=== PATIENT | female | born 1980 | race Caucasian/White ===

== ENCOUNTER → 2016-06-29 | Outpatient (REF) | payer OTHER | LOC: M LAB REF 10:11 | PROVIDERS: ATTEND Physician Assistant Medical | DX: J02.9 Acute pharyngitis, unspecified (principal) ==

== ENCOUNTER → 2016-07-21 | Outpatient (CLI) | payer OTHER ==
--- NOTE | 2016-07-21 16:50 | REP ---
Clinical: Cough. Technique: PA and lateral. Comparison: None. Findings: There is a vague area of opacity/density in the left upper lobe which requires further investigation. Differential diagnosis includes consolidation as well as neoplasm. Mediastinum and cardiac silhouette normal. Remainder of lung howard clear. No effusion. No pneumothorax. Skeletal structures intact. Impression: A vague area of opacity/density in the left upper lobe. Differential diagnosis includes consolidation and neoplasm. Chest CT with contrast recommended. Signed by David Moscoso MD 07/21/2016 04:42 P
== END ==
LOC: M ADAMS 16:21
PROVIDERS: ATTEND Physician Assistant
DX: R05 Cough (principal); J98.4 Other disorders of lung

== ENCOUNTER → 2016-08-08 | Outpatient (CLI) | payer OTHER ==
--- NOTE | 2016-08-08 16:27 | REP ---
PET/CT: History: Six 0.6 x 2.0 x 5.8 centimeter asymmetric density in the medial basal segment of the left lower lobe. Question malignancy. Cough. Diagnosing lung carcinoma. Comparisons: Comparison chest CT study is from 08/01/2016. TECHNIQUE: 52 minutes following the intravenous injection of a 10.1 mCi dose of F-18 FDG, three-dimensional PET scintigraphy is acquired from the skull base to the proximal thighs. Triplanar noncontrast CT scanning is acquired through the same anatomic range for attenuation correction, and image registration with scan parameters optimized to minimize radiation exposure to the patient. PET scintigraphy and CT datasets were fused and displayed on a workstation with multiplanar and projection display capability. PET/CT Findings: The there is discernible non hypermetabolic FDG accumulation in the patchy opacification pattern in the left lower lobe on today's PET scintigraphy. There is a band of linear atelectatic opacity in the left base which is slightly different appearance than on the 08/01/2016 CT study. The scattered reticular nodular and tree in bud densities seen elsewhere in the left lower lobe are not apparent on today's accompanying CT suggesting some clearing. No mass-like properties are seen. The findings are most compatible with inflammatory disease. Maximum standard uptake value is 2.0. No other hypermetabolic uptake is seen within the thorax. The head and neck soft tissues are unremarkable. No abnormal hypermetabolic uptake is seen within the abdomen pelvis or proximal thighs. Impression: Non hypermetabolic FDG accumulation in the atelectatic or infiltrative density in the left lower lobe. This favors inflammatory changes. Follow-up chest CT study suggested in 3-4 months. Otherwise negative PET CT. Signed by Terence Couch MD 08/08/2016 05:06 P
== END ==
LOC: M RAD 07:52
PROVIDERS: ATTEND Physician Assistant Medical
DX: R91.8 Other nonspecific abnormal finding of lung field (principal)
CPT/HCPCS: 78815; A9552

== ENCOUNTER → 2016-08-29 | Outpatient (REF) | payer OTHER | LOC: M LABDRWAD 10:15 | PROVIDERS: ATTEND Internal Medicine Pulmonary Disease | DX: J47.0 Bronchiectasis with acute lower respiratory infection (principal) ==

== ENCOUNTER → 2016-08-29 | Outpatient (REF) | payer OTHER ==
[2016-08-29 20:10] LABS: BASO % 0.6 % (0.0-1.0); EOS # 0.1 K/mm3 (0.0-0.50); EOS % 1.3 % (0.0-3.0); LYMPH # 1.4 K/mm3 (1.5-4.5); LYMPH % 31.3 % (24.0-44.0); MEAN CORPUSCULAR HEMOGLOBIN 27.9 pg (27.0-33.0); MEAN CORPUSCULAR HGB CONC 32.5 g/dl (32.0-36.5); MEAN CORPUSCULAR VOLUME 85.8 fl (80.0-96.0); MONO # 0.3 K/mm3 (0.0-0.8); MONO % 6.6 % (0.0-5.0); NEUTROPHILS # 2.5 K/mm3 (1.8-7.7); NEUTROPHILS % 57.9 % (36.0-66.0); RED CELL DISTRIBUTION WIDTH 13.1 % (11.5-14.5); WHITE BLOOD COUNT 4.3 K/mm3 (4.0-10.0)
[2016-08-29 20:23] LABS: ALBUMIN/GLOBULIN RATIO 1.21 (1.00-1.93); ALKALINE PHOSPHATASE 39 U/L (45-117); ALT/SGPT 16 U/L (12-78); ANION GAP 2 MEQ/L (8-16); AST/SGOT 11 U/L (15-37); BILIRUBIN,TOTAL 0.9 MG/DL (0.2-1.0); BLOOD UREA NITROGEN 13 MG/DL (7-18); CARBON DIOXIDE LEVEL 30 MEQ/L (21-32); CHLORIDE LEVEL 107 MEQ/L (98-107); CREATININE FOR GFR 0.71 MG/DL (0.55-1.02); FOLATE 9.5 NG/ML; GLOMERULAR FILTRATION RATE > 60.0 (>60); GLUCOSE, FASTING 83 MG/DL (70-105); POTASSIUM SERUM 4.1 MEQ/L (3.5-5.1); SODIUM LEVEL 139 MEQ/L (136-145); TOTAL PROTEIN 7.3 GM/DL (6.4-8.2); VITAMIN B12 LEVEL 478 PG/ML
[2016-08-30 12:03] LABS: ALBUMIN 4.43 GM/DL (3.29-5.55); ALBUMIN % 60.7 % (55.8-66.1); GAMMA GLOBULIN % 15.6 % (11.1-18.8)
[2016-09-01 00:06] LABS: Lyme Disease IgG/IgM Antibodie <0.91 ISR (0.00-0.90); Lyme Disease IgM Ab Quantitati <0.80 index (0.00-0.79)
== END ==
LOC: M LAB REF 09:12
PROVIDERS: ATTEND Physician Assistant Medical
DX: M13.80 Other specified arthritis, unspecified site (principal); R53.83 Other fatigue

== ENCOUNTER → 2017-04-04 | Outpatient (REF) | payer OTHER | LOC: M LAB REF 21:03 | PROVIDERS: ATTEND Physician Assistant | DX: J02.9 Acute pharyngitis, unspecified (principal) ==

== ENCOUNTER → 2017-06-03 | Outpatient (CLI) | payer OTHER ==
[2017-06-03 20:36] LABS: HEMOGLOBIN 9.3 g/dl (12.0-16.0); MEAN CORPUSCULAR HEMOGLOBIN 27.3 pg (27.0-33.0); MEAN CORPUSCULAR HGB CONC 32.1 g/dl (32.0-36.5); PLATELET COUNT, AUTOMATED 185 10^3/uL (150-450); RED BLOOD COUNT 3.41 10^6/uL (4.00-5.40); RED CELL DISTRIBUTION WIDTH 13.1 % (11.5-14.5); WHITE BLOOD COUNT 6.4 10^3/uL (4.0-10.0)
[2017-06-03 20:45] LABS: GLUCOSE CHALLENGE TEST 1 HOUR 122 MG/DL (LESS THAN 140)
== END ==
LOC: M WUC 17:15
DX: Z36.89 Encounter for other specified antenatal screening (principal); Z3A.00 Weeks of gestation of pregnancy not specified
CPT/HCPCS: 82950

== ENCOUNTER → 2017-08-02 | Outpatient (REF) | payer OTHER | LOC: M LAB REF 13:06 | DX: Z34.83 Encounter for supervision of other normal pregnancy, third trimester (principal) | CPT/HCPCS: 87081 ==

== ENCOUNTER 2017-08-31 10:54 | Inpatient (IN) | payer OTHER ==
[2017-08-31] MEDS: LR 1,000 ML IV (12:35)
[2017-08-31 12:48] LABS: HEMATOCRIT 33.5 % (36.0-47.0); HEMOGLOBIN 10.7 g/dl (12.0-15.5); MEAN CORPUSCULAR HEMOGLOBIN 26.1 pg (27.0-33.0); MEAN CORPUSCULAR HGB CONC 31.9 g/dl (32.0-36.5); MEAN CORPUSCULAR VOLUME 81.7 fl (80.0-96.0); PLATELET COUNT, AUTOMATED 155 10^3/uL (150-450); RED CELL DISTRIBUTION WIDTH 14.4 % (11.5-14.5); WHITE BLOOD COUNT 8.2 10^3/uL (4.0-10.0)
[2017-08-31] MEDS: LACTATED RINGER'S 1000 ML IV ×2 (12:49→17:51)
[2017-08-31] MEDS ORDERED: OXYTOCIN 30 UNITS IN 0.9% NaCl 500ML IV BAG (J2590) As Ordered (16:33)
[2017-08-31] MEDS ORDERED: FENTANYL 2MCG/ML ROPIVACAINE 0.2% IN 0.9% NACL 200ML IVBAG As Ordered (16:34)
[2017-08-31] MEDS ORDERED: ePHEDrine SULFATE 25 MG/5 ML(5MG/ML) SYRINGE As Ordered (17:47)
[2017-08-31] MEDS: FENTANYL/ROPIVACAINE/NACL BAG 200 ML EPIDURAL (17:51)
[2017-08-31] MEDS: ePHEDrine SULFATE 25 MG/5 ML(5MG/ML) SYRINGE IV (17:51)
[2017-08-31] MEDS ORDERED: EPIDURAL/PCA KEYS XX (18:00)
[2017-08-31] MEDS ORDERED: NALOXONE INJ 0.4 MG/1 ML VIAL (J2310) IV (18:00)
[2017-08-31] MEDS ORDERED: REFRIGERATOR IV KEYS XX (18:00)
[2017-08-31] MEDS ORDERED: diphenhydrAMINE INJ 50MG/ML VIAL (J1200) IV (18:00)
[2017-08-31] MEDS ORDERED: ONDANSETRON 4MG/2ML VIAL (J2405) IV (18:00)
[2017-08-31] MEDS ORDERED: EPIDURAL COMMENT XX (18:00)
[2017-08-31] MEDS: OXYTOCIN DRIP 30 UNITS in APPROPRIATE DILUENT 1 EA IV (20:20)
[2017-08-31] MEDS ORDERED: MEASLES,MUMPS,RUBELLA VACCINE INJ (MMR-II) (90707) SC (20:30)
[2017-08-31] MEDS ORDERED: ANUSOL HC CREAM 30GM TOP (20:30)
[2017-08-31] MEDS ORDERED: RHOGAM 300 MCG (1500 IU) INJ (J2790) IM (20:30)
[2017-08-31] MEDS ORDERED: MOM 30ML SUSPENSION UDC PO (20:30)
[2017-08-31] MEDS ORDERED: DIBUCAINE 1% OINTMENT 30GM TOP (20:30)
[2017-08-31] MEDS ORDERED: DOCUSATE SODIUM 100 MG CAP PO (20:30)
[2017-08-31] MEDS ORDERED: METHYLERGONOVINE MALEATE 0.2 MG TAB PO (20:30)
[2017-09-01] MEDS: IBUPROFEN 800 MG TAB PO ×2 (05:59→15:45)
[2017-09-01] MEDS: ACETAMINOPHEN 500 MG TAB PO ×2 (13:11→20:06)
== END 2017-09-02 09:40 | disposition home or self-care (01) | DRG 775 ==
LOC: M LDO 10:54 → M LDI 12:07 → M OBS 22:02
PROVIDERS: Obstetrics & Gynecology
PROC: 10E0XZZ Delivery of Products of Conception, External Approach (ICD-10-PCS; principal; 2017-08-31)
DX: O48.0 Post-term pregnancy (principal); Z3A.40 40 weeks gestation of pregnancy; Z37.0 Single live birth

== ENCOUNTER 2017-10-09 04:54 | Emergency (ER) | payer OTHER ==
[2017-10-09 06:38] LABS: HEMATOCRIT 32.1 % (36.0-47.0); HEMOGLOBIN 10.2 g/dl (12.0-15.5); MEAN CORPUSCULAR HEMOGLOBIN 25.2 pg (27.0-33.0); MEAN CORPUSCULAR HGB CONC 31.8 g/dl (32.0-36.5); MEAN CORPUSCULAR VOLUME 79.3 fl (80.0-96.0); PLATELET COUNT, AUTOMATED 243 10^3/uL (150-450); RED BLOOD COUNT 4.05 10^6/uL (4.00-5.40); RED CELL DISTRIBUTION WIDTH 14.7 % (11.5-14.5); WHITE BLOOD COUNT 4.5 10^3/uL (4.0-10.0)
[2017-10-09 06:50] LABS: ADD MANUAL DIFFER YES; DIFF SLIDE NUMBER 98; POSITIVE MORPH POS FLAG
[2017-10-09 07:07] LABS: C REACTIVE PROTEIN QUANTITATIV 8.42 MG/DL (0.00-0.30)
[2017-10-09 07:11] LABS: LACTIC ACID SEPSIS PROTOCOL 0.8 MMOL/L (0.4-2.0)
[2017-10-09 07:17] LABS: EOSINOPHILS 2 % (0-5); LYMPHOCYTES 28 % (16-52); MONOCYTES 4 % (0-8); NEUTROPHILS 66 % (35-75)
[2017-10-09 07:18] LABS: PLATELET ESTIMATE NORMAL (NORMAL)
[2017-10-09] MEDS: CLINDAMYCIN 900 MG in APPROPRIATE DILUENT 1 EA IV (07:33)
== END 2017-10-09 08:55 | disposition home or self-care (01) ==
LOC: M ED 04:54
DX: N61.0 Mastitis without abscess (principal); Z79.899 Other long term (current) drug therapy; Z88.0 Allergy status to penicillin; Z91.89 Other specified personal risk factors, not elsewhere classified; Z91.013 Allergy to seafood
CPT/HCPCS: 76642

== ENCOUNTER → 2017-12-11 | Outpatient (CLI) | payer OTHER | LOC: M ADAMS 13:34 | DX: M25.562 Pain in left knee (principal) | CPT/HCPCS: 73564 ==

== ENCOUNTER → 2018-01-16 | Outpatient (REF) | payer OTHER ==
[2018-01-16 17:39] LABS: BASO % 0.4 % (0.0-1.0); EOS # 0.1 10^3/uL (0.0-0.50); HEMATOCRIT 36.2 % (36.0-47.0); HEMOGLOBIN 11.3 g/dl (12.0-15.5); IMMATURE GRANULOCYTE % 0.2 % (0-3.0); LYMPH # 1.7 10^3/uL (1.5-4.5); MEAN CORPUSCULAR HEMOGLOBIN 26.6 pg (27.0-33.0); MEAN CORPUSCULAR HGB CONC 31.2 g/dl (32.0-36.5); MEAN CORPUSCULAR VOLUME 85.2 fl (80.0-96.0); MONO # 0.5 10^3/uL (0.0-0.8); MONO % 10.1 % (0.0-5.0); NEUTROPHILS # 2.2 10^3/uL (1.8-7.7); NEUTROPHILS % 49.3 % (36.0-66.0); PLATELET COUNT, AUTOMATED 261 10^3/uL (150-450); RED BLOOD COUNT 4.25 10^6/uL (4.00-5.40); WHITE BLOOD COUNT 4.5 10^3/uL (4.0-10.0)
[2018-01-16 18:44] LABS: IRON (FE) 61 UG/DL (50-170); PERCENT SATURATION 19.6 % (13.2-45.0); TOTAL IRON BINDING CAPACITY 312 UG/DL (250-450)
== END ==
LOC: M SFHCADAM 15:59
DX: Z86.2 Personal history of diseases of the blood and blood-forming organs and certain disorders involving the immune mechanism (principal)

== ENCOUNTER → 2018-01-21 | Outpatient (REF) | payer OTHER | LOC: M SFHCADAM 11:54 | DX: K62.5 Hemorrhage of anus and rectum (principal) ==

== ENCOUNTER → 2018-03-04 | Outpatient (REF) | payer OTHER | LOC: M LAB REF 16:06 | DX: L81.4 Other melanin hyperpigmentation (principal) ==

== ENCOUNTER → 2018-04-18 | Outpatient (REF) | payer OTHER ==
[~2018-04-18] MED LIST: CEPH500C; CLEO300C2 PO; COLA100C5 PO; MILK120011 PO; MOTR200T44 PO; PRENTAB9 PO; TUMS500C PO; TYLE325C PO
[2018-04-18 19:23] LABS: BASO % 0.5 % (0.0-1.0); EOS # 0.1 10^3/uL (0.0-0.50); EOS % 1.4 % (0.0-3.0); HEMATOCRIT 39.6 % (36.0-47.0); HEMOGLOBIN 12.4 g/dl (12.0-15.5); LYMPH # 1.8 10^3/uL (1.5-4.5); LYMPH % 23.3 % (24.0-44.0); MEAN CORPUSCULAR HEMOGLOBIN 26.8 pg (27.0-33.0); MEAN CORPUSCULAR HGB CONC 31.3 g/dl (32.0-36.5); MEAN CORPUSCULAR VOLUME 85.7 fl (80.0-96.0); MONO # 0.4 10^3/uL (0.0-0.8); MONO % 5.1 % (0.0-5.0); NEUTROPHILS # 5.5 10^3/uL (1.8-7.7); NEUTROPHILS % 69.3 % (36.0-66.0); PLATELET COUNT, AUTOMATED 369 10^3/uL (150-450); RED BLOOD COUNT 4.62 10^6/uL (4.00-5.40); WHITE BLOOD COUNT 7.9 10^3/uL (4.0-10.0)
== END ==
LOC: M SFHCADAM 14:31
PROVIDERS: ATTEND Family Medicine
DX: D50.9 Iron deficiency anemia, unspecified (principal); E55.9 Vitamin D deficiency, unspecified

== ENCOUNTER → 2018-11-15 | Outpatient (REF) | payer OTHER ==
[~2018-11-15] MED LIST changes: +IBUP-1022 PO; +IRON27TA2 PO; +PROBCAP14 PO; +REGL10TA6 PO; +VITAD1000T PO
== END ==
LOC: M LAB REF 10:48
PROVIDERS: ATTEND Physician Assistant
DX: N39.0 Urinary tract infection, site not specified (principal)

== ENCOUNTER → 2018-11-17 | Outpatient (REF) | payer OTHER ==
[2018-11-17 15:35] LABS: APPEARANCE, URINE CLEAR (CLEAR); BACTERIA, URINE AUTO NEGATIVE (NEGATIVE); BILIRUBIN, URINE AUTO NEGATIVE (NEGATIVE); BLOOD, URINE BLOOD 1+ (NEGATIVE); COLOR, URINE YELLOW (YELLOW); GLUCOSE, URINE (UA) AUTO NEGATIVE (NEGATIVE); KETONE, URINE AUTO NEGATIVE (NEGATIVE); LEUKOCYTE ESTERASE, URINE AUTO NEGATIVE (NEGATIVE); NITRITE, URINE AUTO NEGATIVE (NEGATIVE); PROTEIN, URINE AUTO NEGATIVE (NEGATIVE); RBC, URINE AUTO 3 /HPF (0-3); SPECIFIC GRAVITY URINE AUTO 1.006 (1.002-1.035); SQUAMOUS EPITHELIAL CELL UR AU 0 /HPF (0-6); UROBILINOGEN, URINE AUTO 0.2 mg/dL (0.0-2.0); WBC, URINE AUTO 0 /HPF (0-3)
[2018-11-17 15:44] LABS: BASO % 0.8 % (0.0-1.0); EOS % 0.4 % (0.0-3.0); HEMOGLOBIN 13.1 g/dl (12.0-15.5); LYMPH # 0.3 10^3/uL (1.5-4.5); LYMPH % 13.1 % (24.0-44.0); MEAN CORPUSCULAR HEMOGLOBIN 27.1 pg (27.0-33.0); MEAN CORPUSCULAR VOLUME 84.9 fl (80.0-96.0); MONO # 0.4 10^3/uL (0.0-0.8); MONO % 17.1 % (0.0-5.0); NEUTROPHILS # 1.7 10^3/uL (1.8-7.7); NEUTROPHILS % 68.2 % (36.0-66.0); PLATELET COUNT, AUTOMATED 145 10^3/uL (150-450); RED BLOOD COUNT 4.83 10^6/uL (4.00-5.40); WHITE BLOOD COUNT 2.5 10^3/uL (4.0-10.0)
[2018-11-17 16:11] LABS: BLOOD UREA NITROGEN 8 MG/DL (7-18); CARBON DIOXIDE LEVEL 27 MEQ/L (21-32); CHLORIDE LEVEL 98 MEQ/L (98-107); GLOMERULAR FILTRATION RATE > 60.0 (>60); GLUCOSE, FASTING 82 MG/DL (70-100); POTASSIUM SERUM 3.9 MEQ/L (3.5-5.1); SODIUM LEVEL 133 MEQ/L (136-145)
== END ==
LOC: M SFHCPLAZ 14:23
PROVIDERS: ATTEND Family Medicine
DX: N30.00 Acute cystitis without hematuria (principal)

== ENCOUNTER 2018-11-21 12:50 | Emergency (ER) | payer OTHER ==
[~2018-11-21] VITALS: Ht 167.6 cm; Wt 60.5 kg
[~2018-11-21 12:50] MED LIST changes: -IBUP-1022 PO; -IRON27TA2 PO; -PROBCAP14 PO; -REGL10TA6 PO; -VITAD1000T PO
[2018-11-21] MEDS ORDERED: IRON27TA2 PO (13:27)
[2018-11-21] MEDS ORDERED: CHOL100029 PO (13:27)
[2018-11-21] MEDS ORDERED: PROBCAP14 PO (13:28)
[2018-11-21 13:36] LABS: BASO % 0.6 % (0.0-1.0); EOS % 0.6 % (0.0-3.0); HEMATOCRIT 36.9 % (36.0-47.0); HEMOGLOBIN 12.1 g/dl (12.0-15.5); LYMPH # 0.8 10^3/uL (1.5-4.5); MEAN CORPUSCULAR HEMOGLOBIN 27.9 pg (27.0-33.0); MEAN CORPUSCULAR HGB CONC 32.8 g/dl (32.0-36.5); MEAN CORPUSCULAR VOLUME 85.2 fl (80.0-96.0); MONO # 0.3 10^3/uL (0.0-0.8); MONO % 8.7 % (0.0-5.0); NEUTROPHILS # 2.3 10^3/uL (1.8-7.7); NEUTROPHILS % 67.1 % (36.0-66.0); PLATELET COUNT, AUTOMATED 165 10^3/uL (150-450); RED BLOOD COUNT 4.33 10^6/uL (4.00-5.40); WHITE BLOOD COUNT 3.4 10^3/uL (4.0-10.0)
[2018-11-21] MEDS ORDERED: IBUPROFEN 800 MG TAB PO ONE (13:45)
[2018-11-21 14:00] LABS: ALBUMIN 3.8 GM/DL (3.2-5.2); ALT/SGPT 18 U/L (12-78); BILIRUBIN,TOTAL 0.6 MG/DL (0.2-1.0); BLOOD UREA NITROGEN 6 MG/DL (7-18); CALCIUM LEVEL 8.7 MG/DL (8.5-10.1); CARBON DIOXIDE LEVEL 29 MEQ/L (21-32); CHLORIDE LEVEL 103 MEQ/L (98-107); CREATININE FOR GFR 0.69 MG/DL (0.55-1.30); GLOMERULAR FILTRATION RATE > 60.0 (>60); GLUCOSE, FASTING 111 MG/DL (70-100); POTASSIUM SERUM 3.8 MEQ/L (3.5-5.1); SODIUM LEVEL 140 MEQ/L (136-145); TOTAL PROTEIN 7.7 GM/DL (6.4-8.2)
[2018-11-21 14:08] LABS: C REACTIVE PROTEIN QUANTITATIV 4.13 MG/DL (0.00-0.30)
[2018-11-21 14:37] LABS: MAGNESIUM LEVEL 2.5 MG/DL (1.8-2.4)
--- NOTE | 2018-11-21 14:50 | REP ---
Clinical: Headache and fever . Comparison: None . Findings: The ventricles, sulci, and cisterns are normal in position and appearance. Garay-white differentiation is maintained. No acute intracranial hemorrhage, mass/mass effect, pathology or trauma/injury. No evidence for acute infarction. No extra-axial fluid collection. Calvarium is intact. Paranasal sinuses and mastoid air cells are clear. Impression: Normal noncontrast head CT. No evidence for acute intracranial pathology or trauma/injury. Electronically Signed by David Moscoso MD 11/21/2018 02:42 P
--- NOTE | 2018-11-21 14:51 | REP ---
Clinical: Headache and fever . Technique: Axial noncontrast images from the skull base to the thoracic inlet with coronal and sagittal re-formations Findings: Straightening of normal lordosis noted. Normal alignment is maintained. Cervical vertebral bodies including transverse processes and spinous processes are intact and there is no evidence for acute fracture / compression injury or subluxation. Spinal canal is patent. Posterior elements are intact. Paravertebral soft tissues are normal. Impression: Essentially normal age appropriate noncontrast cervical spine CT. No evidence for acute pathology or trauma/injury. Electronically Signed by David Moscoso MD 11/21/2018 02:43 P
[2018-11-21] MEDS ORDERED: ACETAMINOPHEN 325 MG TAB PO ONE (16:15)
[2018-11-21] MEDS ORDERED: ONDANSETRON 4MG/2ML VIAL (J2405) IV ONE (16:15)
[2018-11-21] MEDS ORDERED: NS 1,000 ML IV ONE ×2 (16:15→20:00)
[2018-11-21 16:22] LABS: MONO SCRN NEGATIVE (NEGATIVE)
[2018-11-21 18:09] LABS: CPK CREATINE PHOSPHOKINASE 71 U/L (26-192)
--- NOTE | 2018-11-21 19:32 | REP ---
Clinical: Fever . Comparison: 07/21/2016 . Technique: PA and lateral. Findings: The mediastinum and cardiac silhouette are normal. The lung howard are clear and without acute consolidation, effusion, or pneumothorax. The skeletal structures are intact and normal. Impression: 1. No acute cardiopulmonary process. Electronically Signed by David Moscoso MD 11/21/2018 07:23 P
[2018-11-21] MEDS ORDERED: diazePAM 10 MG/2 ML INJ (J3360) IV ONE (20:00)
[2018-11-21] MEDS ORDERED: METOCLOPRAMIDE INJ 10MG/2ML VIAL (J2765) IV ONE (20:00)
[2018-11-21] MEDS ORDERED: diphenhydrAMINE INJ 50MG/ML VIAL (J1200) IV ONE (20:15)
[2018-11-21 21:33] VITALS: BP 103/57
[2018-11-21] MEDS ORDERED: REGL10TA6 PO (21:46)
[2018-11-21] MEDS ORDERED: IBUP-1022 PO (21:46)
[2018-11-25 00:07] LABS: Lyme Disease IgG/IgM Antibodie <0.91 ISR (0.00-0.90); Lyme Disease IgM Ab Quantitati <0.80 index (0.00-0.79)
== END 2018-11-21 21:55 | disposition home or self-care (01) ==
LOC: M ED 12:50
DX: R51 Headache (principal); R11.0 Nausea; R50.9 Fever, unspecified; R21 Rash and other nonspecific skin eruption; M79.10 Myalgia, unspecified site; Z86.79 Personal history of other diseases of the circulatory system; Z82.3 Family history of stroke; Z88.1 Allergy status to other antibiotic agents; Z91.013 Allergy to seafood; Z79.899 Other long term (current) drug therapy
CPT/HCPCS: 70450; 71046; 72125; 80053; 81001; 82550; 83605; 83735; 84702; 85025; 86140; 86308; 86617; 87040; 87486; 87581; 87633; 87798; 87880; 96374; 96375; 99284; J1200; J2405; J2765

== ENCOUNTER → 2019-02-04 | Outpatient (REF) | payer OTHER ==
[~2019-02-04] MED LIST changes: +CHOL100029 PO; +IBUP-1022 PO; +IRON27TA2 PO; +PROBCAP14 PO; +REGL10TA6 PO
[2019-02-06 19:25] LABS: HPV HYBRID CAPTURE II Negative (Negative)
== END ==
LOC: M LAB REF 17:08
PROVIDERS: ATTEND Advanced Practice Midwife
DX: Z12.4 Encounter for screening for malignant neoplasm of cervix (principal)
CPT/HCPCS: 87624; G0123

== ENCOUNTER → 2019-02-16 | Outpatient (CLI) | payer OTHER ==
--- NOTE | 2019-02-16 18:51 | REP ---
Clinical: Lower abdominal pain and tenderness . Technique: Transabdominal pelvic ultrasound followed by transvaginal examination for better evaluation of the endometrium and adnexa with color Doppler evaluation of the ovaries. Findings: Bladder is unremarkable and measures 9.9 x 8.5 x 7.2 cm . Normal anteverted uterus measures 8.9 x 3.7 x 5.6 cm . The endometrial complex measures 7.4 mm thickness. No discrete uterine or endometrial abnormalities are appreciated. Bilateral ovaries are normal in appearance and vascularity without evidence for torsion. Right ovary measures 3.3 x 2.0 x 1.6 cm (RI 0.49) with 1.5 cm dominant follicle/cyst. Left ovary measures 2.9 x 1.4 x 1.2 cm (RI 0.71). No pelvic fluid or adnexal mass lesion . Impression: 1. Essentially normal pelvic ultrasound. Electronically Signed by David Moscoso MD 02/16/2019 06:43 P
== END ==
LOC: M RAD 16:34
PROVIDERS: ATTEND Advanced Practice Midwife
DX: R10.2 Pelvic and perineal pain (principal)

== ENCOUNTER → 2019-06-08 | Outpatient (CLI) | payer OTHER ==
[2019-06-08 18:02] LABS: BASO % 0.3 % (0.0-1.0); EOS # 0.1 10^3/uL (0.0-0.5); EOS % 0.8 % (0.0-3.0); HEMOGLOBIN 11.5 g/dl (12.0-15.5); LYMPH # 1.5 10^3/uL (1.5-5.0); LYMPH % 23.1 % (24.0-44.0); MEAN CORPUSCULAR HEMOGLOBIN 27.9 pg (27.0-33.0); MEAN CORPUSCULAR HGB CONC 31.9 g/dl (32.0-36.5); MEAN CORPUSCULAR VOLUME 87.4 fl (80.0-96.0); MONO # 0.5 10^3/uL (0.0-0.8); MONO % 7.1 % (0.0-5.0); NEUTROPHILS # 4.4 10^3/uL (1.5-8.5); NEUTROPHILS % 68.4 % (36.0-66.0); PLATELET COUNT, AUTOMATED 232 10^3/uL (150-450); RED BLOOD COUNT 4.12 10^6/uL (4.00-5.40); WHITE BLOOD COUNT 6.5 10^3/uL (4.0-10.0)
[2019-06-08 19:48] LABS: CHLAMYDIA DNA AMPLIFICATION NEGATIVE (NEGATIVE); GC DNA AMPLIFICATION NEGATIVE (NEGATIVE)
[2019-06-09 11:27] LABS: HIV 1&2 SCREEN CENTAUR NEGATIVE (NEGATIVE); RUBELLA IgG QUALITATIVE IMMUNE (IMMUNE)
[2019-06-10 09:59] LABS: HEPATITIS C VIRUS ABY INDEX < 0.0 INDEX (<0.8)
== END ==
LOC: M PLALAB 15:16
PROVIDERS: ATTEND Advanced Practice Midwife
DX: Z34.91 Encounter for supervision of normal pregnancy, unspecified, first trimester (principal)

== ENCOUNTER → 2019-08-17 | Outpatient (CLI) | payer OTHER ==
--- NOTE | 2019-08-17 16:45 | REP ---
REASON FOR EXAM: anatomy. There are no priors for comparison. Multiple ultrasonographic images of the gravid uterus show a single living intrauterine gestation in the cephalic presentation. Doppler interrogation of the heart shows a heart rate of 149 beats per minute. The placenta is posterior and not low lying. The subjective amniotic fluid volume is within normal limits. The cervix measures 4 cm in length and is closed. Evaluation of the maternal adnexal spaces showed no abnormalities. anatomical structures seen as unremarkable are as follows: Thalami, cavum septum pellucidum, cerebellum, cisterna magna, spine, kidneys, urinary bladder, three-vessel umbilical cord, cord insertion, right and left ventricular outflow tracts, stomach, upper lip. Structures which need further followup are as follows: Four-chamber heart and choroid plexus. Four-chamber heart image showed one intracardiac echogenic focus in the left ventricle and two intracardiac echogenic foci in the right ventricle. In addition, small amount of fluid was seen surrounding the heart consistent with a pericardial effusion. Four chambers could not be confirmed by today's exam. BPD 3.9 cm = 18 weeks 0 days HC 15.0 cm = 18 weeks 0 days AC 13.2 cm = 18 weeks 5 days FL 2.6 cm = 18 weeks 0 days The estimated weight is 233 grams, which is at the 43rd percentile for an 18 week 3 day gestational age. Single living intrauterine gestation as described above with an estimated gestational age 18 weeks 3 days via composite criteria and an estimated date of delivery of 01/15/2020 based on today's exam. A followup examination is recommended for re-evaluation of those findings described above. In addition, multiple cysts were seen in right and left choroid plexus, some measuring over 5 mm. This too needs further followup. A phone call was placed to ELINA Romo, to discuss today's findings.
== END ==
LOC: M WHC 08:05
PROVIDERS: ATTEND Advanced Practice Midwife
DX: Z34.92 Encounter for supervision of normal pregnancy, unspecified, second trimester (principal)

== ENCOUNTER → 2019-08-17 | Outpatient (CLI) | payer OTHER | LOC: M PLALAB 15:13 | PROVIDERS: ATTEND Advanced Practice Midwife | DX: Z13.79 Encounter for other screening for genetic and chromosomal anomalies (principal) ==

== ENCOUNTER → 2019-10-02 | Outpatient (REF) | payer OTHER ==
[2019-10-02 18:03] LABS: HEMATOCRIT 31.7 % (36.0-47.0); HEMOGLOBIN 10.4 g/dl (12.0-15.5); MEAN CORPUSCULAR HEMOGLOBIN 28.9 pg (27.0-33.0); MEAN CORPUSCULAR HGB CONC 32.8 g/dl (32.0-36.5); MEAN CORPUSCULAR VOLUME 88.1 fl (80.0-96.0); PLATELET COUNT, AUTOMATED 192 10^3/uL (150-450); WHITE BLOOD COUNT 5.6 10^3/uL (4.0-10.0)
== END ==
LOC: M PLALAB 14:52 → M SFHCADAM 14:52
PROVIDERS: ATTEND Advanced Practice Midwife
DX: O09.522 Supervision of elderly multigravida, second trimester (principal)

== ENCOUNTER → 2019-11-12 | Outpatient (CLI) | payer OTHER ==
--- NOTE | 2019-11-12 11:26 | REP ---
Clinical: Growth evaluation. Trisomy 21 Comparison: 08/17/2019 . Findings: Examination demonstrates a single live intrauterine in breech presentation. motion is identified by technologist. Placenta is noted posterior and grade I without evidence for placenta previa or abruption. Amniotic fluid volume is normal. Cervix measures 3.9 cm in length and appears closed. No evidence for nuchal cord. Gestational age by LMP 30 weeks 6 days with CASI 01/15/2020 . Gestational age by current measurements 30 weeks 1 day with CASI 01/20/2020 . FHR equals 136 beats per minute. BPD 7.5 cm 30 weeks 1 day HC 28.9 cm 31 weeks 6 days AC 28.9 cm 32 weeks 6 days FL 5.4 cm 28 weeks 5 days HL 4.7 cm of 27 weeks 6 days HC/AC ratio 1.00 Estimated weight 1742 grams ( 53rd percentile). Amniotic fluid index: 15.2 cm (8.8 - 23.7). Anatomical evaluation is limited and again demonstrates a small pericardial fluid collection as well as increased echogenicity to the abdominal contents. Impression: 1. Single live intrauterine in breech presentation demonstrating appropriate interval growth. 2. Small pericardial effusion again noted along with mildly prominent increased echogenicity to the abdominal contents. Electronically Signed by David Moscoso MD 11/12/2019 11:17 A
== END ==
LOC: M WHC 07:24
PROVIDERS: ATTEND Advanced Practice Midwife
DX: Q90.9 Down syndrome, unspecified (principal)

== ENCOUNTER → 2019-12-22 | Outpatient (REF) | payer OTHER | LOC: M WHC 14:30 | PROVIDERS: ATTEND Advanced Practice Midwife | DX: Z34.83 Encounter for supervision of other normal pregnancy, third trimester (principal) ==

== ENCOUNTER → 2019-12-25 | Outpatient (CLI) | payer OTHER ==
--- NOTE | 2020-01-19 13:54 | REP ---
LIMITED OBSTETRICAL ULTRASOUND CLINICAL: Trisomy 21 growth RENATA. COMPARISON: 12/03/2019. TECHNIQUE: Transabdominal obstetrical ultrasound with color Doppler evaluation. FINDINGS: Ultrasound examination demonstrates a single live advanced gestation in cephalic presentation. motion was identified by the technologist. Placenta noted posteriorly and grade 2 without placenta previa or abruption. Amniotic fluid volume is upper limits of normal. RENATA equals 18.1 cm. Cervix measures 3.6 cm in length and appears closed. heart rate equals 122 beats per minute. MEASUREMENTS: BPD 89 mm 35 weeks 6 days HC 322 mm 36 weeks 3 days AC 362 mm 40 weeks 1 day FL 64 mm 33 weeks 2 days HL 55 mm 32 weeks 2 days Estimated weight by current measurements 36 weeks 3 days with estimated date of delivery 01/19/2020. Estimated age by last menstrual period (LMP) 36 weeks 6 days with estimated date of delivery 01/16/2020. Estimated weight 3277 grams (77th percentile). IMPRESSION: * Single live advanced gestation in cephalic presentation demonstrating appropriate estimated weight and growth. * The anatomical assessment was not performed, although sonologist demonstrates subtle increased echogenicity to the chest, which is nonspecific. MTDD
== END ==
LOC: M WHC 07:07
PROVIDERS: ATTEND Advanced Practice Midwife
DX: Z34.83 Encounter for supervision of other normal pregnancy, third trimester (principal); Z3A.36 36 weeks gestation of pregnancy; Q90.9 Down syndrome, unspecified

== ENCOUNTER 2020-01-06 19:25 | Inpatient (IN) | payer OTHER ==
[~2020-01-06] VITALS: Ht 168.9 cm; Wt 77.5 kg
[2020-01-06] VITALS (9 sets, daily range): BP systolic 101–149; BP diastolic 58–75
[2020-01-06] MEDS: IBUPROFEN 800 MG TAB PO PRN (20:29)
[2020-01-06] MEDS ORDERED: DIBUCAINE 1% OINTMENT 30GM TOP PRN (20:30)
[2020-01-06] MEDS ORDERED: DOCUSATE SODIUM 100 MG CAP PO PRN (20:30)
[2020-01-06] MEDS ORDERED: RHOGAM 300 MCG (1500 IU) INJ (J2790) IM SCH (20:30)
[2020-01-06] MEDS ORDERED: METHYLERGONOVINE MALEATE 0.2 MG TAB PO PRN (20:30)
[2020-01-06] MEDS ORDERED: ACETAMINOPHEN TAB 650MG DOSE (2X325MG) PO PRN (20:30)
[2020-01-06] MEDS ORDERED: ACETAMINOPHEN 500 MG TAB PO PRN (20:30)
[2020-01-06] MEDS ORDERED: IBUPROFEN 600MG TAB PO PRN (20:30)
[2020-01-06] MEDS ORDERED: OXYTOCIN INJ 10 UNITS/ML VIAL (J2590) IM ONE (20:30)
[2020-01-06] MEDS ORDERED: MEASLES,MUMPS,RUBELLA VACCINE INJ (MMR-II) (90707) SC SCH (20:30)
[2020-01-07 06:00] VITALS: BP 105/64
[2020-01-07] MEDS: IBUPROFEN 800 MG TAB PO PRN (06:20)
[2020-01-07] MEDS ORDERED: INFLUENZA QUADRIVALENT PF VACCINE 0.5ML SYRINGE IM ONE (08:15)
[2020-01-07] MEDS ORDERED: BOOSTRIX/ADACEL VACCINE (DIPHTH/PERTUSS/ACELL/TETANUS) 0.5ML SYR IM ONE (08:15)
[2020-01-07] MEDS ORDERED: PRENATAL VITAMINS CHEWABLE TABLET PO SCH (09:00)
--- NOTE | 2020-01-07 18:49 | HPE ---
DATE OF ADMISSION: 01/06/2020. HISTORY OF PRESENT ILLNESS: Meme is a 39-year-old, 3, para 2, 0, 0, 2, at 38 and 4/7 weeks gestation, EDC of 01/16/2020 based on last menstrual period and confirmed by first trimester ultrasound. She presents to labor and delivery today in second stage of labor. She reports the fetus has been active. Contractions started at approximately 15:00 and progressively became closer and more uncomfortable. She denies leakage of fluid. She has had some scant bloody show. care was initiated at [facility] in the first trimester. Her course was complicated by a trisomy-21 fetus. She did undergo a cardiac echocardiogram antenatally and that was reported to be normal. OBSTETRIC HISTORY: 1. In September 2012, spontaneous vaginal delivery, female, 8 pounds 11 ounces. 2. In August 2017, spontaneous vaginal delivery, male, 9 pounds 5 ounces. OBSTRETIC LABS: A+, antibody screen negative. Urine culture no growth. Syphilis negative. Gonorrhea and Chlamydia negative. Hepatitis C antibody negative. Hepatitis B surface antigen negative. HIV negative. Rubella immune. Gestational diabetic screening normal at 129. GBS negative. PAST MEDICAL HISTORY: C. difficile infection, Pertussis. PAST SURGICAL HISTORY: Bronchoscopy, foot surgery, adenoids and tonsillectomy. FAMILY HISTORY: Noncontributory. SOCIAL HISTORY: Patient is . She is a nonsmoker. Denies alcohol and drug use. No history of sexually transmitted infections. She denies history of abuse; physical, sexual and emotional. ALLERGIES: Shellfish. CURRENT MEDICATIONS: vitamins, Tums p.r.n. OBJECTIVE: Temperature 97.3, pulse 67, blood pressure 102/65. She appears extremely uncomfortable with her contractions. Moaning with her contractions. heart rate is 115 with moderate variability, no accelerations, noted variable deceleration with maternal pushing effort. Contractions are every 2 minutes. Sterile vaginal exam upon arrival complete, complete, +1 station, bulging bag of water. Assisted rupture of membranes performed, noted a large amount of clear odorless fluid. Delivery note to follow. ASSESSMENT: 1. Intrauterine at 38 and 4/7 weeks. 2. heart rate Category I. 3. Second stage of labor. PLAN: 1. Admit the patient to Labor and Delivery. 2. Anticipate imminent delivery. 3. Routine labs. 4. Out of bed ad-anderson. MTDD
== END 2020-01-07 10:10 | disposition home or self-care (01) | DRG 807 ==
LOC: M LDI 19:25 → M OBS 22:15
PROVIDERS: ADMIT Advanced Practice Midwife; ATTEND Advanced Practice Midwife
PROC: 10E0XZZ Delivery of Products of Conception, External Approach (ICD-10-PCS; principal; 2020-01-06)
PROC: 10907ZC Drainage of Amniotic Fluid, Therapeutic from Products of Conception, Via Natural or Artificial Opening (ICD-10-PCS; 2020-01-06)
DX: O80 Encounter for full-term uncomplicated delivery (principal); Z37.0 Single live birth; Z3A.38 38 weeks gestation of pregnancy

== ENCOUNTER → 2020-03-24 | Outpatient (REF) | payer OTHER ==
[2020-03-24 13:48] LABS: BASO % 0.2 % (0.0-1.0); EOS % 0.7 % (0.0-3.0); HEMATOCRIT 38.8 % (36.0-47.0); HEMOGLOBIN 12.2 g/dl (12.0-15.5); LYMPH # 1.7 10^3/uL (1.5-5.0); LYMPH % 41.5 % (24.0-44.0); MEAN CORPUSCULAR HEMOGLOBIN 27.4 pg (27.0-33.0); MEAN CORPUSCULAR HGB CONC 31.4 g/dl (32.0-36.5); MONO # 0.4 10^3/uL (0.0-0.8); MONO % 9.1 % (0.0-5.0); NEUTROPHILS % 48.3 % (36.0-66.0); PLATELET COUNT, AUTOMATED 237 10^3/uL (150-450); RED BLOOD COUNT 4.46 10^6/uL (4.00-5.40); WHITE BLOOD COUNT 4.2 10^3/uL (4.0-10.0)
[2020-03-24 14:30] LABS: TOTAL 25(OH) VITAMIN D 26.7 NG/ML (30.0-100.0)
== END ==
LOC: M SFHCADAM 10:51
PROVIDERS: ATTEND Family Medicine
DX: Z86.2 Personal history of diseases of the blood and blood-forming organs and certain disorders involving the immune mechanism (principal); E55.9 Vitamin D deficiency, unspecified

== ENCOUNTER → 2020-04-29 | Outpatient (CLI) | payer OTHER ==
--- NOTE | 2020-04-29 15:33 | REP ---
INDICATION: LYMPHADENOPATHY COMPARISON: None. TECHNIQUE: Garay scale and color evaluation of the neck using linear high-frequency transducer. FINDINGS: Directed ultrasound examination of the right thoracic inlet/supraclavicular region at the site of palpable mass demonstrates a small ovoid hypoechoic structure likely representing lymph node measuring 7 x 3 x 7 mm. No further adenopathy, mass or fluid collection.. IMPRESSION: Small hypoechoic structure likely representing lymph node. <Electronically signed by David Moscoso > 04/29/20 1526
== END ==
LOC: M RAD 14:47
PROVIDERS: ATTEND Family Medicine
DX: R59.1 Generalized enlarged lymph nodes (principal)

== ENCOUNTER → 2020-07-05 | Outpatient (REF) | payer OTHER | LOC: M SFHCWAGY 15:17 | PROVIDERS: ATTEND Advanced Practice Midwife | DX: Z12.4 Encounter for screening for malignant neoplasm of cervix (principal) ==

== ENCOUNTER → 2020-11-10 | Outpatient (REF) | payer OTHER ==
[2020-11-10 18:17] LABS: FREE T4 0.85 NG/DL (0.76-1.46); THYROID STIMULATING HORMONE 1.01 uIU/ML (0.358-3.740)
== END ==
LOC: M LABDRWAD 16:45
PROVIDERS: ATTEND Internal Medicine Gastroenterology
DX: K58.0 Irritable bowel syndrome with diarrhea (principal)

== ENCOUNTER → 2020-11-11 | Outpatient (REF) | payer OTHER | LOC: M LAB REF 18:56 | PROVIDERS: ATTEND Internal Medicine Gastroenterology | DX: K58.0 Irritable bowel syndrome with diarrhea (principal) ==

== ENCOUNTER 2021-06-12 13:52 | Day surgery (SDC) | payer OTHER ==
[~2021-06-12] VITALS: Ht 167.6 cm; Wt 63.9 kg
[~2021-06-12 13:52] MED LIST changes: +CALC500T52 PO; +D-3-50003 PO; +NS 1,000 ML IV ONE; +PROB250C PO; +[UNRECOGNIZED DRUG - OTHER] PO
[2021-06-12] MEDS ORDERED: propofoL 200 MG/20 ML VIAL As Ordered ONE (16:32)
[2021-06-12] MEDS ORDERED: LIDOCAINE 2% 100MG/5ML SDV (FOR ANES.) As Ordered ONE (16:32)
[2021-06-12 17:30] VITALS: BP 115/70
[2021-06-13 07:31] LABS: CLOSTRIDIUM DIFFICILE PCR NEGATIVE (NEGATIVE)
== END 2021-06-12 17:30 | disposition home or self-care (01) ==
LOC: M OPP 13:52
PROVIDERS: ATTEND Internal Medicine Gastroenterology
DX: K63.89 Other specified diseases of intestine (principal); K52.9 Noninfective gastroenteritis and colitis, unspecified; K44.9 Diaphragmatic hernia without obstruction or gangrene; R12 Heartburn; Z86.19 Personal history of other infectious and parasitic diseases

== ENCOUNTER → 2022-10-19 | Outpatient (CLI) | payer OTHER ==
[~2022-10-19] MED LIST changes: -NS 1,000 ML IV ONE
== END ==
LOC: M WHC 13:19
PROVIDERS: ATTEND Advanced Practice Midwife
DX: Z12.31 Encounter for screening mammogram for malignant neoplasm of breast (principal)

== ENCOUNTER → 2023-11-26 | Outpatient (CLI) | payer OTHER ==
[~2023-11-26] MED LIST changes: +METHACHOLINE KIT (6 VIAL.NEB PREMIX) INH ONE
== END ==
LOC: M SLEEP HO 12:43
PROVIDERS: ATTEND Physician Assistant
DX: R05.9 Cough, unspecified (principal)